=== PATIENT | female | born 1970 | race Caucasian/White ===

== ENCOUNTER 2024-08-30 12:34 | Outpatient (CLI) | payer OTHER, SELFPAY ==
--- NOTE | ~2024-08-30 | XR_ITS ---
3 VIEWS LUMBAR SPINE Ordering provider: Dio Garcia MD History: . lumbago . Comparison: June 07, 2016 FINDINGS: VERTEBRAL BODIES:Slight anterior loss of height is seen in T12 and L1 most likely chronic. No visibl e fracture or subluxation. Degenerative changes of the spine. Severe bending of the coccyx. DISK SPACES: Normal. Facet joint disease at the level of L5-S1. SOFT TISSUES: Postoperative changes in the anterior abdominal wall. Calcifications in the right side of the pelvis which may be vascular and unchanged from previous exam ination. Ultrasound evaluation advised. IMPRESSION: No acute osseous abnormality lumbar spine. Reviewed, dictated and finalized at location A.
== END 2024-08-30 12:35 | disposition home or self-care (01) ==
PROVIDERS: PCP Emergency Medicine; Visit Provider Emergency Medicine
DX: M54.40 Lumbago with sciatica, unspecified side (principal)
CPT/HCPCS: 72100